=== PATIENT | female | born 1970 | race Caucasian/White ===

== ENCOUNTER 2023-08-24 10:13 | Outpatient (CLI) | payer MEDICARE, MEDICAID, SELFPAY | END 2023-08-24 10:14 | disposition home or self-care (01) | LOC: ANHBWCAUD 10:14 | PROVIDERS: PCP Internal Medicine; Visit Provider Otolaryngology | DX: H90.6 Mixed conductive and sensorineural hearing loss, bilateral (principal) | CPT/HCPCS: 92557; 92567 ==